=== PATIENT | male | born 1945 | race Caucasian/White ===

== ENCOUNTER 2019-01-28 11:53 | Day surgery (SDC) | payer MEDICARE, OTHER ==
[~2019-01-28] VITALS: Ht 175.3 cm; Wt 120.0 kg
[~2019-01-28 11:53] MED LIST: ALLO100; ALLO300 PO; CLON.1 PO; LISI20; NIFE90ER PO; OXYACE5T PO; PENVK500 PO; TRIHYD5075 PO; Zestril40 MG PO
--- NOTE | 2019-01-28 13:07 | NUR ---
01/28/[address] NOTIFIED OF ELEVATED BP, NO ORDERS GIVEN AT THIS TIME. PT. IS ANXIOUS & ALSO C/O BACK PAIN RATING "2-3". PT. HAS CHRONIC BACK PAIN. PT. HAD A PILLOW UNDERNEATH HIS KNEES BUT WANTED IT REMOVED. PT. INSTRUCTED TO CALL IF NEEDED ANYTHING. CALL LIGHT IS WITHIN REACH.
== END 2019-01-28 14:26 | disposition home or self-care (01) ==
LOC: ORSCSDS 11:53
PROVIDERS: Internal Medicine Gastroenterology
PROC: 0DBK8ZX Excision of Ascending Colon, Via Natural or Artificial Opening Endoscopic, Diagnostic (ICD-10-PCS; principal; 2019-01-28 13:30)
DX: Z12.11 Encounter for screening for malignant neoplasm of colon (principal); Z86.010 Personal history of colon polyps; D12.2 Benign neoplasm of ascending colon; Z80.0 Family history of malignant neoplasm of digestive organs; I10 Essential (primary) hypertension; K64.8 Other hemorrhoids; K57.30 Diverticulosis of large intestine without perforation or abscess without bleeding; G47.33 Obstructive sleep apnea (adult) (pediatric); Z68.38 Body mass index [BMI] 38.0-38.9, adult; E66.01 Morbid (severe) obesity due to excess calories; Z87.891 Personal history of nicotine dependence; Z79.899 Other long term (current) drug therapy
CPT/HCPCS: 88305; J2704; J7120

== ENCOUNTER 2020-04-18 08:24 | Day surgery (SDC) | payer MEDICARE, OTHER ==
[~2020-04-18] VITALS: Ht 175.3 cm; Wt 129.2 kg
[~2020-04-18 08:24] MED LIST changes: +ASPIR 8181 M1 PO; +ATOR20 PO; +CARV6.25 PO; +Dyazide 37.5-21 EACH PO
[2020-04-18] MEDS ORDERED: ALBU90OI INH (09:07)
--- NOTE | 2020-04-18 12:13 | NUR ---
1110 PATIENT RETURNED FROM THE [facility] VIA RECLINER. RIGHT RADIAL TR BAND IN PLACE WITH 9 ML OF AIR IN THE BAND. PATIENT PLACED ON THE MONITOR AND CALL LIGHT IN REACH. VVS. NO PAIN NOTED FROM THE PATIENT. NO BLEEDING NOTED. ARM BOARD IN PLACE TO PREVENT PATIENT FROM USING THE RIGHT ARM.
--- NOTE | 2020-04-18 12:58 | NUR ---
12CC AIR REMOVED FROM R WRIST TR BAND. -BLEEDING OR SWELLING.
--- NOTE | 2020-04-18 13:52 | NUR ---
5615 TR BAND REMOVED AND SITE CLEANED, PENDING DISCHARGE. RIGHT RADIAL DEVELOPED A HEMATOMA AND TR BAND REPLACED. 5 ML OF AIR ADDED. PATIENT UP AND UNDERWEAR ON WITH ASSISTANCE FROM WITH. PATIENT TO THE RESTROOM.
--- NOTE | 2020-04-18 14:16 | NUR ---
1415 ALL AIR REVOMED FROM THE TR BAND FOR THE SECOND TIME AND PROXIMAL TO THE BAND WAS FULL AND BECOMING HARDER IN NATURE. ADDED 5 ML OF AIR BACK IN THE FIRST TR BAND AND A SECOND TR BAND PLACED PROXIMAL WITH 5 ML IN THAT BAND ALSO. DR. ANTOINE AT THE BEDSIDE AND SPOKE WITH PATIENT AND ABOUT RESULTS. ALL QUESTIONS ANSWERED.
--- NOTE | 2020-04-18 15:10 | NUR ---
TR BANDS REMOVED ONE AT A TIME. R RADIAL SITE SOFT AND NONTENDER. 2ND TR BAND REMOVED. SMALL HEMATOMA NOTED IN BETWEEN TR BANDS. PRESSURE APPLIED FOR 5 MINUTES. SITE SOFTENED AND DECREASED IN SIZE. CLOTH DOT PLACED OVER SITE AT WRIST. PT AND BOTH FEEL COMFORTABLE TO GO HOME. PT TO PRIVATE VEHICLE PER W/C WITH ASSIST OF ONE STAFF.
== END 2020-04-18 13:00 | disposition home or self-care (01) ==
LOC: MHTC 08:24
DX: I71.4 Abdominal aortic aneurysm, without rupture (principal); I71.2 Thoracic aortic aneurysm, without rupture; I25.10 Atherosclerotic heart disease of native coronary artery without angina pectoris; I73.9 Peripheral vascular disease, unspecified; I10 Essential (primary) hypertension; E66.9 Obesity, unspecified; G47.33 Obstructive sleep apnea (adult) (pediatric); Z79.82 Long term (current) use of aspirin; Z79.899 Other long term (current) drug therapy
CPT/HCPCS: 85347; 93454; 93567; 99152; 99153; C1769; C1887; C1894; J1644; J2250; J3010; J7030; J7050; Q9967

== ENCOUNTER → 2021-12-13 | Outpatient (CLI) | payer MEDICARE, OTHER ==
[~2021-12-13] MED LIST changes: +ALBU90OI INH
[2021-12-14 09:23] LABS: Stool Occult Bld Immuno 1 Negative (NEGATIVE)
== END | disposition home or self-care (01) ==
LOC: LAB SHORT 12:00
PROVIDERS: Family Medicine
DX: R19.5 Other fecal abnormalities (principal)
CPT/HCPCS: G0328

== ENCOUNTER 2024-04-11 10:36 | Inpatient (IN) | payer MEDICARE, OTHER ==
[~2024-04-11] VITALS: Ht 175.3 cm; Wt 121.6 kg
[2024-04-11 11:26] LABS: BASOPHILS ABSOLUTE AUTO 0.03 K/mm3 (0.00-0.23); BASOPHILS PERCENT AUTO 1 % (0-2); EOSINOPHILS ABSOLUTE AUTO 0.16 K/mm3 (0.00-0.68); EOSINOPHILS PERCENT AUTO 3 % (0-6); Hematocrit 45.5 % (37.0-53.0); Hemoglobin 14.6 g/dL (13.5-17.5); IMMATURE GRAN ABSOLUTE AUTO 0.01 K/mm3 (0.00-0.10); IMMATURE GRAN PERCENT AUTO 0 % (0-1); LYMPHOCYTES ABSOLUTE AUTO 1.18 K/mm3 (0.84-5.20); LYMPHOCYTES PERCENT AUTO 19 % (21-46); MONOCYTES ABSOLUTE AUTO 0.45 K/mm3 (0.16-1.47); MONOCYTES PERCENT AUTO 7 % (4-13); Mean Corpuscular HGB 28.9 pg (26.0-34.0); Mean Corpuscular HGB Conc 32.1 g/dL (31.5-36.5); Mean Corpuscular Volume 90 fL (80-100); Mean Platelet Volume 11.8 fL (9.1-12.4); NEUTROPHILS ABSOLUTE AUTO 4.46 K/mm3 (1.96-9.15); NEUTROPHILS PERCENT AUTO 71 % (41-73); Platelet Count 167 K/mm3 (150-400); RDW Coefficient Variation 14.8 % (11.7-14.2); RDW Standard Deviation 48.5 fL (35.1-46.3); Red Blood Cell Count 5.05 M/mm3 (4.30-5.90); White Blood Cell Count 6.29 K/mm3 (4.00-11.30)
[2024-04-11 11:43] LABS: Albumin, Blood 3.1 g/dL (3.4-5.0); Albumin/Globulin Ratio 0.8 (0.8-1.8); Bilirubin, Total 0.9 mg/dL (0.1-1.0); Calcium, Blood 9.7 mg/dL (8.5-10.1); Creatinine, Blood 1.45 mg/dL (0.60-1.20); Potassium, Blood 3.9 mmol/L (3.5-5.5); Total Protein, Blood 7.1 g/dL (6.4-8.2)
[2024-04-11] MEDS ORDERED: K-TAB ER20 ME1 PO (13:15)
[2024-04-11] MEDS ORDERED: CARVEDILOL25 M9 PO (13:15)
[2024-04-11] MEDS ORDERED: Ipratropium/Albuterol SulF 2.5-0.5MG/3 ML Amp INH ONE (13:30)
[2024-04-11] MEDS ORDERED: Furosemide 10 MG/ML 4ML Vial IV ONE (13:30)
[2024-04-11] MEDS ORDERED: MethylPREDNISolone Sod Succ 125 MG Vial IV ONE (13:30)
[2024-04-11] MEDS ORDERED: Ondansetron HCl 2 MG / ML 2ML Vial IV PRN (17:20)
[2024-04-11] MEDS ORDERED: Acetaminophen 325 MG TABLET PO PRN (17:25)
[2024-04-11] MEDS ORDERED: HydrALAZINE HCl 20 MG / ML 1ML Vial IV PRN (17:30)
[2024-04-11] MEDS ORDERED: Enoxaparin 40 MG/0.4 ML SYR SC SCH (18:00)
[2024-04-11] MEDS ORDERED: Azithromycin 500 MG in NS 250 ML IV SCH (18:00)
[2024-04-11 20:00] VITALS: BP 183/59
[2024-04-11 21:28] VITALS: BP 178/60
[2024-04-11 22:24] VITALS: BP 165/50
[2024-04-11] MEDS ORDERED: Albuterol HFA200 ACT/6.7 GM INH INH PRN (23:25)
[2024-04-12] MEDS ORDERED: Albuterol HFA200 ACT/6.7 GM INH INH PRN (04:00)
[2024-04-12 04:23] VITALS: BP 158/49
[2024-04-12 04:45] LABS: BASOPHILS PERCENT AUTO 0 % (0-2); EOSINOPHILS PERCENT AUTO 0 % (0-6); Hematocrit 40.9 % (37.0-53.0); Hemoglobin 13.7 g/dL (13.5-17.5); IMMATURE GRAN ABSOLUTE AUTO 0.02 K/mm3 (0.00-0.10); IMMATURE GRAN PERCENT AUTO 0 % (0-1); LYMPHOCYTES ABSOLUTE AUTO 0.75 K/mm3 (0.84-5.20); LYMPHOCYTES PERCENT AUTO 15 % (21-46); MONOCYTES ABSOLUTE AUTO 0.04 K/mm3 (0.16-1.47); MONOCYTES PERCENT AUTO 1 % (4-13); Mean Corpuscular HGB 29.5 pg (26.0-34.0); Mean Corpuscular HGB Conc 33.5 g/dL (31.5-36.5); Mean Corpuscular Volume 88 fL (80-100); NEUTROPHILS ABSOLUTE AUTO 4.32 K/mm3 (1.96-9.15); NEUTROPHILS PERCENT AUTO 84 % (41-73); Platelet Count 165 K/mm3 (150-400); RDW Coefficient Variation 14.6 % (11.7-14.2); RDW Standard Deviation 47.2 fL (35.1-46.3); Red Blood Cell Count 4.65 M/mm3 (4.30-5.90); White Blood Cell Count 5.13 K/mm3 (4.00-11.30)
[2024-04-12 05:15] LABS: Albumin, Blood 2.7 g/dL (3.4-5.0); Albumin/Globulin Ratio 0.8 (0.8-1.8); Bilirubin, Total 1.2 mg/dL (0.1-1.0); Bun/Creatinine Ratio 23.2 (12.0-20.0); Calcium, Blood 9.4 mg/dL (8.5-10.1); Creatinine, Blood 1.55 mg/dL (0.60-1.20); Globulin, Blood 3.5 g/dL (2.2-4.0); Potassium, Blood 3.4 mmol/L (3.5-5.5); Total Protein, Blood 6.2 g/dL (6.4-8.2)
--- NOTE | 2024-04-12 06:52 | NUR ---
SHIFT SUMMARY: Pt is admitted for acute diastolic CHF and is a full code. Is alert and able to make needs known. ADLs have been IND. denies pain or discomfort when asked. Telly reports sinus in the 70s. On 3LPM of O2 via NC and with a bleed in for CPAP.
[2024-04-12 07:27] VITALS: BP 180/51
[2024-04-12] MEDS ORDERED: CARV25 PO (08:28)
[2024-04-12] MEDS ORDERED: Allopurinol 300 MG Tab PO SCH (09:00)
[2024-04-12] MEDS ORDERED: Carvedilol 25 MG Tab PO SCH (09:00)
[2024-04-12] MEDS ORDERED: Furosemide 10 MG/ML 4ML Vial IV SCH (09:00)
[2024-04-12 16:00] VITALS: BP 151/51
--- NOTE | 2024-04-12 17:39 | NUR ---
SHIFT SUMMARY PT AWAKE WITH CPAP ON DURING SHIFT REPORT. PT IS VERY PLEASANT AND GRATEFUL FOR CARE. UP INDEPENDENTLY IN AND TO [facility]. PT ADMITTED FOR NEW DX OF CHF. PT IMPROVED FROM ADMISSION; NOW BREATHING BETTER AND ON RA. DR CAVANAUGH NOTIFIED FOR DIET THIS AM. DR CAVANAUGH LATER TO TO SEE PT. ECHO DONE IN THIS AM. FAMILY TO MOST OF DAY. PT HOPING TO GO HOME TOMORROW. UP WALKING HALLS THIS AFTERNOON, INDEPENDENTLY USING FWW FOR SAFETY. CALL LT IN REACH.
[2024-04-12] MEDS ORDERED: NS 250 ML IV PRN (18:10)
[2024-04-12 19:21] VITALS: BP 181/65
[2024-04-13 03:34] VITALS: BP 177/63
[2024-04-13 04:59] LABS: BASOPHILS ABSOLUTE AUTO 0.02 K/mm3 (0.00-0.23); BASOPHILS PERCENT AUTO 0 % (0-2); EOSINOPHILS ABSOLUTE AUTO 0.01 K/mm3 (0.00-0.68); EOSINOPHILS PERCENT AUTO 0 % (0-6); Hematocrit 40.1 % (37.0-53.0); Hemoglobin 13.1 g/dL (13.5-17.5); IMMATURE GRAN ABSOLUTE AUTO 0.03 K/mm3 (0.00-0.10); IMMATURE GRAN PERCENT AUTO 0 % (0-1); LYMPHOCYTES ABSOLUTE AUTO 1.46 K/mm3 (0.84-5.20); LYMPHOCYTES PERCENT AUTO 14 % (21-46); MONOCYTES PERCENT AUTO 7 % (4-13); Mean Corpuscular HGB 28.9 pg (26.0-34.0); Mean Corpuscular HGB Conc 32.7 g/dL (31.5-36.5); Mean Corpuscular Volume 89 fL (80-100); NEUTROPHILS PERCENT AUTO 78 % (41-73); Platelet Count 184 K/mm3 (150-400); RDW Coefficient Variation 14.7 % (11.7-14.2); RDW Standard Deviation 47.7 fL (35.1-46.3); Red Blood Cell Count 4.53 M/mm3 (4.30-5.90); White Blood Cell Count 10.12 K/mm3 (4.00-11.30)
[2024-04-13 05:19] LABS: Bun/Creatinine Ratio 30.7 (12.0-20.0); Calcium, Blood 9.4 mg/dL (8.5-10.1); Creatinine, Blood 1.76 mg/dL (0.60-1.20); Potassium, Blood 3.3 mmol/L (3.5-5.5)
--- NOTE | 2024-04-13 06:41 | NUR ---
SHIFT SUMMARY: Pt is admitted for acute diastolic CHF and is a full code. Is alert and able to make needs known. ADLs have been IND. denies pain or discomfort when asked. Telly reports sinus in the 70s. Wears CPAP at night
[2024-04-13 07:24] VITALS: BP 161/50
[2024-04-13] MEDS ORDERED: DYAZIDE 37.5-21 EACH PO (10:47)
[2024-04-13] MEDS ORDERED: FURO80 PO (10:47)
[2024-04-13] MEDS ORDERED: AZIT250 PO (11:20)
[2024-04-13] MEDS ORDERED: FURO20 PO (11:21)
--- NOTE | 2024-04-13 11:49 | NUR ---
DISCHARGE NOTE: PT DISCHARGED AT APPROX 1130. THIS RN EDUCATED PATIENT ABOUT MEDICATOINS AND TO RETURN TO ER IF SYMPTOMS WORSEN. PT STATED UNDERSTANDING. THIS RN ESCORTED PATIENT AND FAMILY VIA WHEELCHAIR OUT TO TRANSPORTING VEHICLE. ALL QUESTIONS ANSWERED, NO NEEDS AT TIME OF DISCHARGE. PIV REMOVED WITH TIP INTACT.
== END 2024-04-13 11:34 | disposition home or self-care (01) | DRG 291 ==
LOC: ER 10:36 → MEDS 17:18
PROVIDERS: Internal Medicine; Physician Assistant; ADMIT Internal Medicine
DX: I13.0 Hypertensive heart and chronic kidney disease with heart failure and stage 1 through stage 4 chronic kidney disease, or unspecified chronic kidney disease (principal); I50.33 Acute on chronic diastolic (congestive) heart failure; J96.01 Acute respiratory failure with hypoxia; E78.5 Hyperlipidemia, unspecified; R91.1 Solitary pulmonary nodule; I71.21 Aneurysm of the ascending aorta, without rupture; M10.9 Gout, unspecified; I71.40 Abdominal aortic aneurysm, without rupture, unspecified; E04.1 Nontoxic single thyroid nodule; J40 Bronchitis, not specified as acute or chronic; I35.1 Nonrheumatic aortic (valve) insufficiency; G47.33 Obstructive sleep apnea (adult) (pediatric); E66.9 Obesity, unspecified; N18.30 Chronic kidney disease, stage 3 unspecified; Z87.891 Personal history of nicotine dependence; Z79.82 Long term (current) use of aspirin; Z79.899 Other long term (current) drug therapy
CPT/HCPCS: 36415; 71046; 71260; 80048; 80053; 83880; 84484; 85025; 85379; 93005; 93010; 93306; 94640; 94664; 94762; 96374-59; 96375-59; 99285-25; A9270; J0360; J0456; J1650; J1940; J2919; J7050; Q9967

== ENCOUNTER 2024-09-02 09:59 | Inpatient (IN) | payer MEDICARE, OTHER ==
[~2024-09-02] VITALS: Ht 175.3 cm; Wt 112.2 kg
[~2024-09-02 09:59] MED LIST changes: +ASPI81CH PO; +AZIT250 PO; +BUME1 PO; +CARV25 PO; +CARVEDILOL25 M9 PO; +Carvedilol12.5 MG PO; +DELTASONE20 MG; +DYAZIDE 37.5-21 EACH PO; +FURO20 PO; +FURO80 PO; +IPRAT-ALBUT 0.5-3 ML INH; +K-TAB ER20 ME1 PO; +KLOR-CON 1010 ME9 PO
[2024-09-02] MEDS ORDERED: MethylPREDNISolone Sod Succ 125 MG Vial IV ONE (10:05)
[2024-09-02] MEDS ORDERED: Albuterol 2.5 MG/3 ML VIAL INH SCH (10:05)
[2024-09-02 10:29] LABS: BASOPHILS ABSOLUTE AUTO 0.01 K/mm3 (0.00-0.23); BASOPHILS PERCENT AUTO 0 % (0-2); EOSINOPHILS PERCENT AUTO 0 % (0-6); Hemoglobin 13.8 g/dL (13.5-17.5); IMMATURE GRAN ABSOLUTE AUTO 0.03 K/mm3 (0.00-0.10); IMMATURE GRAN PERCENT AUTO 0 % (0-1); LYMPHOCYTES ABSOLUTE AUTO 0.87 K/mm3 (0.84-5.20); LYMPHOCYTES PERCENT AUTO 10 % (21-46); MONOCYTES PERCENT AUTO 6 % (4-13); Mean Corpuscular HGB 28.3 pg (26.0-34.0); Mean Corpuscular HGB Conc 32.9 g/dL (31.5-36.5); Mean Corpuscular Volume 86 fL (80-100); Mean Platelet Volume 10.4 fL (9.1-12.4); NEUTROPHILS ABSOLUTE AUTO 7.55 K/mm3 (1.96-9.15); NEUTROPHILS PERCENT AUTO 84 % (41-73); Platelet Count 189 K/mm3 (150-400); RDW Coefficient Variation 14.4 % (11.7-14.2); RDW Standard Deviation 45.8 fL (35.1-46.3); Red Blood Cell Count 4.88 M/mm3 (4.30-5.90); White Blood Cell Count 8.96 K/mm3 (4.00-11.30)
[2024-09-02 10:53] LABS: Albumin, Blood 2.8 g/dL (3.4-5.0); Albumin/Globulin Ratio 0.7 (0.8-1.8); Bilirubin, Total 0.6 mg/dL (0.1-1.0); Bun/Creatinine Ratio 37.8 (12.0-20.0); Calcium, Blood 9.6 mg/dL (8.5-10.1); Creatinine, Blood 1.48 mg/dL (0.60-1.20); Globulin, Blood 4.1 g/dL (2.2-4.0); Potassium, Blood 4.9 mmol/L (3.5-5.5); Total Protein, Blood 6.9 g/dL (6.4-8.2)
[2024-09-02] MEDS ORDERED: Bumetanide 0.25 MG/ML 10ML Vial IV ONE (11:30)
[2024-09-02] MEDS ORDERED: FLU VACC TS2024-25(6MOS UP)/PF 45 MCG/0.5 ML SYRINGE IM SCH (13:40)
[2024-09-02] MEDS ORDERED: Ipratropium/Albuterol SulF 2.5-0.5MG/3 ML Amp INH PRN ×2 (13:45→17:40)
[2024-09-02] MEDS ORDERED: HydrALAZINE HCl 20 MG / ML 1ML Vial IV PRN (13:50)
[2024-09-02] MEDS ORDERED: MethylPREDNISolone Sod Succ 125 MG Vial IV SCH (14:00)
[2024-09-02 16:54] VITALS: BP 187/47
[2024-09-02] MEDS ORDERED: Carvedilol 6.25 MG Tab PO SCH (17:00)
[2024-09-02] MEDS ORDERED: ALLO300 PO (17:16)
[2024-09-02] MEDS ORDERED: Albuterol 2.5 MG/3 ML VIAL INH PRN (17:40)
[2024-09-02] MEDS ORDERED: Bumetanide 0.25 MG/ML 4ML ViaL IV SCH (18:00)
--- NOTE | 2024-09-02 18:00 | NUR ---
ADMISSION NOTE PT ADMITTED TO MEDICAL FLOOR FROM ED AT [facility] 1650 FOR CHF/COPD EXACERBATION. PT ABLE TO STAND FROM WC AND AMBULATE TO HOSPITAL BED INDEPENDENTLY WITHOUT ANY NOTED DISTRESS OR DISCOMFORT. PT COMES TO ROOM ON RA, PT PLACED ON CONTINUOUS PULSE OX, O2 SATURATION LEVELS REMAIN ABOVE 92% AND PT DENIES SOB WITH EXERTION AND TALKING. PT ABLE TO AMBULATE TO BATHROOM WITHOUT O2 SATURATION LEVELS DROPPING BELOW 92%. PT DENIES PAIN. ADNISSION COMPLETED AND PT AND FAMILY ORIENTED TO ROOM. CALL LIGHT WITHIN PT REACH.
[2024-09-02 20:24] VITALS: BP 157/37
[2024-09-03] VITALS (10 sets, daily range): BP systolic 149–211; BP diastolic 35–91
--- NOTE | 2024-09-03 03:25 | NUR ---
SHIFT SUMMARY PT IS A/O X4, SBA TO THE RESTROOM. AMBULATING INDEPENDENTLY, PLEASANT AND COOPERATIVE WITH CARE. PT DENIES PAIN AND DISCOMFORT. PT WEARING C-PAP DURING THE NIGHT HOURS, CONTINUOUS PULSE OX WITH THE CPAP>97% SAT'S. PT IS BRADYCARDIC, HR BTW.45-55BPM.RT BY THE BEDSIDE AT HS, NEB TX'S. LUNG SOUNDS CLEAR, COARSE/DIMINISHED AT BASES. PT REPORTS SOB WHILE AMBULATING. +3 EDEMA LE'S BILATERALLY. ENCOURAGED ELEVATING LE'S. NO ACUTE EVENTS DURING THIS SHIFT. BED AT THE LOWEST POSITION, CALL LIGHT WITHIN REACH. PT IS ABLE TO MAKE HIS NEEDS KNOWN.
[2024-09-03 05:17] LABS: BASOPHILS ABSOLUTE AUTO 0.01 K/mm3 (0.00-0.23); BASOPHILS PERCENT AUTO 0 % (0-2); EOSINOPHILS PERCENT AUTO 0 % (0-6); Hematocrit 40.3 % (37.0-53.0); Hemoglobin 13.4 g/dL (13.5-17.5); IMMATURE GRAN ABSOLUTE AUTO 0.03 K/mm3 (0.00-0.10); IMMATURE GRAN PERCENT AUTO 0 % (0-1); LYMPHOCYTES ABSOLUTE AUTO 0.74 K/mm3 (0.84-5.20); LYMPHOCYTES PERCENT AUTO 9 % (21-46); MONOCYTES ABSOLUTE AUTO 0.16 K/mm3 (0.16-1.47); MONOCYTES PERCENT AUTO 2 % (4-13); Mean Corpuscular HGB 28.7 pg (26.0-34.0); Mean Corpuscular HGB Conc 33.3 g/dL (31.5-36.5); Mean Corpuscular Volume 86 fL (80-100); Mean Platelet Volume 10.9 fL (9.1-12.4); NEUTROPHILS PERCENT AUTO 88 % (41-73); Platelet Count 196 K/mm3 (150-400); RDW Coefficient Variation 14.4 % (11.7-14.2); RDW Standard Deviation 45.3 fL (35.1-46.3); Red Blood Cell Count 4.67 M/mm3 (4.30-5.90); White Blood Cell Count 8.04 K/mm3 (4.00-11.30)
[2024-09-03 05:53] LABS: Albumin, Blood 2.7 g/dL (3.4-5.0); Albumin/Globulin Ratio 0.7 (0.8-1.8); Bilirubin, Total 0.6 mg/dL (0.1-1.0); Bun/Creatinine Ratio 42.9 (12.0-20.0); Calcium, Blood 9.1 mg/dL (8.5-10.1); Creatinine, Blood 1.63 mg/dL (0.60-1.20); Globulin, Blood 3.8 g/dL (2.2-4.0); Magnesium, Blood 2.5 mg/dL (1.6-2.4); Phosphorus, Blood 3.9 mg/dL (2.5-4.9); Potassium, Blood 3.9 mmol/L (3.5-5.5); Total Protein, Blood 6.5 g/dL (6.4-8.2)
[2024-09-03] MEDS ORDERED: Triamter/HCthiazide 37.5/25 MG 1 Tab PO SCH (09:00)
[2024-09-03] MEDS ORDERED: Heparin Sodium 5000 Units/ML 1ML MDV SC SCH (09:00)
[2024-09-03] MEDS ORDERED: Aspirin 81 MG Chew PO SCH (09:00)
[2024-09-03] MEDS ORDERED: HydrALAZINE HCl 25 MG Tab PO SCH (11:00)
[2024-09-03] MEDS ORDERED: ZINC OXIDE/PETROLATUM, YELLOW 1 APPLIC/71 GM PASTE TOP PRN (16:30)
--- NOTE | 2024-09-03 17:34 | NUR ---
MET WITH PATIENT HIS PRITI, AND SON KETTY. WE DISCUSSED HIS CURRENT MEDICAL STATUS. HE RELAYED THAT HE IS FEELING MUCH BETTER AFTER HIS MEDICATION ADJUSTMENT. PATIENT EXPRESSED THAT HIS GOALS ARE TO CONTINUE TREATMENT AND HOPEFULL FIND A MEDICATION REGIMINE THAT MANAGES HIS SYMPTOMS. PROVIDED THERAPUTIC LISTENING HE RELAYED HIS EXPRIENCES WITH HIS DISEASE PROCESS. PC WILL CONTINUE TO FOLLOW
--- NOTE | 2024-09-03 18:10 | NUR ---
PATIENT IS ALERT AND ORIENTED AND COOPERATIVE WITH CARE. C/O TREMORS THIS EVENING. HR 56 BPM, HOLDING COREG PER DR. SMITH ORDER. ON RA DURING THE DAY. IND TO THE BATHROOM. LARGE BM TODAY. DR. OJEDA IS AWARE OF THE PATIENT'S BP AND TOLD THIS RN THAT HE IS OKAY WITH THE PATIENT'S SYSTOLIC BP RANGING FROM 150-170 mm Hg. paliative care in involved in his care. FAMILY WAS AT THE BEDSIDE FOR MOST OF THE SHIFT. WILL CONTINUE TO MONITOR
[2024-09-03] MEDS ORDERED: Melatonin 5 MG Tablet PO SCH (21:00)
[2024-09-04] VITALS (8 sets, daily range): BP systolic 143–165; BP diastolic 39–50
--- NOTE | 2024-09-04 03:16 | NUR ---
SHIFT SUMMARY PT AMBULATES INDEPENDENTLY W/I THE HOSPITAL ROOM. RT BY THE BEDSIDE SETTING UP PT'S HOME CPAP FOR THE NIGHT. MELATONIN ADMINISTERED ORDERED. PT REPORTS NO SLEEP DURING THE DAY OR PREVIOUS NIGHT. PT DENIES PAIN. LE EDEMA BILATERALLY +2. LUNGS DIMINISHED PER AUSCULTATION. @HS, BREAK NURSE HELD SCHEDULED PO HYDRAZALINE, VS: 152/54,P.55 BPM. NO ACUTE EVENTS DURING THIS SHIFT. BED AT THE LOWEST POSITION, CALL LIGHT WITHIN REACH. PT IS ABLE TO MAKE HIS NEEDS KNOWN AND IS COOPERATIVE WITH CARE.
[2024-09-04] MEDS ORDERED: PredniSONE 20 MG Tab PO SCH (09:00)
[2024-09-04] MEDS ORDERED: HydrALAZINE HCl 10 MG Tab PO SCH (09:00)
[2024-09-04] MEDS ORDERED: Bumetanide 1 MG Tab PO SCH (09:00)
[2024-09-04] MEDS ORDERED: Carvedilol 6.25 MG Tab PO SCH ×2 (11:00→17:00)
--- NOTE | 2024-09-04 16:31 | NUR ---
PROVIDER REQUEST PC MEET WITH PATEINT, HIS , AND SON. PROVIDER RELAYED PATIENT WANTED INFORMATION RE HOSPICE SERVICES. PC EXPLAINED WHAT HOSPICE SERVICE PROVIDES. EDUCATED REGARDING QUALITY OF LIFE AND HOSPICE PHILOSOPHY. PATIENT AND FAMILY V/U AND REQUESTS HOSPICE CONSULT.
--- NOTE | 2024-09-04 20:12 | NUR ---
SHIFT SUMMARY PATIENT WITH TREMORS DURING SHIFT REPORT. HE STATES STARTED TREMORS YESTERDAY BUT WORSENED THIS AM. HE REPORTS OCCAISIONAL DIZZINESS UPON STANDING. DR OJEDA NOTIFIED AND MEDICATION DOSAGES WHERE REDUCED. PATIENT TOLERATED ADJUSMENTS WELL THE DAY WENT ON AND THE DIZZINESS SUBSIDED. CONSTRUCTION ASSISTANT EDUCATED ON IMPORTANCE OF SITTING AT [place] OF BED FOR 1 MINUTE AND THEN STANDING FOR 1 MINUTE TO ASSESS DIZZINESS OR LIGHTHEDED AND TO SIT BACK DOWN OR LAY DOWN IF IT REOCCURS AND TO LET RN KNOWN. HE V/U. HE IS AOX4 AT BEDSIDE, BED IN LOW POSIITION, CALL LIGHT IN REACH. HE IS ABLE TO MAKE NEEDS KNOWN AND ALSO WALKED 2 TIMES THIS EVENING AROUND THE UNIT WITH WALKER AND SBA.
--- NOTE | 2024-09-05 04:06 | NUR ---
SHIFT SUMMARY NO ACUTE EVENTS DURING THIS SHIFT. PT'S PRITI SPENDING THE NIGHT IN THE HOSPITAL ROOM. PT IS SBA TO THE RESTROOM. PLAN IS FOR PT TO DISCHARGE THIS AM TO HOME ON HOSPICE. SCHEDULED HS HYDRAZALINE PO WAS HELD D/T PARAMETER SBP>160. PT DENIES PAIN AND DISCOMFORT. CONTINUING PT EDUCATION. PT VERBALIZES UNDERSTANDING. BED AT THE LOWEST POSITION, CALL LIGHT W/I REACH. PT IS ABLE TO MAKE HIS NEEDS KNOWN, IS PLEASANT AND COOPERATIVE WITH CARE.
[2024-09-05 04:51] VITALS: BP 170/49
[2024-09-05 07:35] VITALS: BP 164/60
[2024-09-05] MEDS ORDERED: MELATONIN5 M1 PO (10:24)
[2024-09-05] MEDS ORDERED: HYDR10 PO (10:24)
--- NOTE | 2024-09-05 11:27 | NUR ---
PT IS BEING SENT [facility] WITH HOSPICE. PT WAS SENT WITH ALL INSTRUCTIONS AND PAPERWORK. NO QUESTIONS OR CONCERNS FOR THE PT'S AND LOVED ONES.
--- NOTE | 2024-09-05 18:13 | NUR ---
MET WITH PATIENT, HIS , AND SON. KSAEY FROM [facility] WAS IN THIS SHIFT FOR SOFT HAND OFF OF PATIENT CARE.
== END 2024-09-05 11:45 | disposition hospice, home (50) | DRG 291 ==
LOC: ER 09:59 → MEDS 13:34 → ERHOLD 13:34 → EDBEDREQSVC 14:40 → MEDS 16:39
PROVIDERS: Emergency Medicine; ADMIT Family Medicine
DX: I13.0 Hypertensive heart and chronic kidney disease with heart failure and stage 1 through stage 4 chronic kidney disease, or unspecified chronic kidney disease (principal); I50.31 Acute diastolic (congestive) heart failure; J96.01 Acute respiratory failure with hypoxia; J44.1 Chronic obstructive pulmonary disease with (acute) exacerbation; M10.9 Gout, unspecified; Z96.651 Presence of right artificial knee joint; Z66 Do not resuscitate; E66.9 Obesity, unspecified; G47.33 Obstructive sleep apnea (adult) (pediatric); I71.40 Abdominal aortic aneurysm, without rupture, unspecified; N18.9 Chronic kidney disease, unspecified; Z88.5 Allergy status to narcotic agent; Z91.013 Allergy to seafood; Z91.018 Allergy to other foods; Z79.51 Long term (current) use of inhaled steroids; Z79.899 Other long term (current) drug therapy; Z79.82 Long term (current) use of aspirin; Z90.49 Acquired absence of other specified parts of digestive tract; Z98.890 Other specified postprocedural states; Z87.891 Personal history of nicotine dependence; Z99.81 Dependence on supplemental oxygen; Z68.37 Body mass index [BMI] 37.0-37.9, adult
CPT/HCPCS: 36415; 71045; 80053; 83735; 83880; 84100; 84484; 85025; 93005; 93010; 94640; 94644; 94664; 94760; 94762; 96374; 96375; 99285-25; A9270; J0360; J1644; J2919; J7512